=== PATIENT | female | born 2005 | race Caucasian/White ===

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

== ENCOUNTER 2024-02-19 17:55 | Emergency (ER) | payer OTHER, MEDICAID, SELFPAY ==
[2024-02-19 18:03] VITALS: BP 120/63; PULSE 88; RESP 16; TEMP 37.2; O2SAT 96
--- NOTE | 2024-02-19 21:03 | PC.NURSE ---
tried calling patient from waiting room with no answer
--- NOTE | 2024-02-20 02:50 | ED.SKABFB ---
HPI - Skin/Abscess/Foreign Bdy General Chief complaint: Skin/Abscess/Foreign Body Stated complaint: Cyst in L Armpit Time Seen by Provider: 02/19/24 18:17 Source: patient and family Mode of arrival: Ambulatory History of Present Illness HPI narrative: Patient left without seeing provider Related Data Previous Rx's Medication Instructions Recorded amoxicillin 250 mg chewable tablet 500 mg (2 x 250 mg) PO TID 5 days 06/19/16 #0 tabs nystatin 100,000 unit/gram topical 0 topher topical BID ##15 06/19/16 cream doxycycline hyclate 100 mg tablet 100 mg PO BID #20 tabs 09/13/22 hydrocodone 5 mg-acetaminophen 325 1 tab PO Q4-6H PRN pain #10 tabs 09/13/22 mg tablet Allergies Allergy/AdvReac Type Severity Reaction Status Date / Time gluten Allergy Verified 02/19/24 18:03 Patient History Medical History Down syndrome Social History Smoking Status: Never smoker Smoking Status: Never smoker Substance Use Type: does not use Exam Initial Vital Signs Initial Vital Signs: Vital Signs Temperature 99 F 02/19/24 18:03 Pulse Rate 88 02/19/24 18:03 Respiratory Rate 16 02/19/24 18:03 Blood Pressure 120/63 02/19/24 18:03 Pulse Oximetry 96 02/19/24 18:03 Oxygen Delivery Method Room Air 02/19/24 18:03 Discharge Plan Departure Patient Disposition: Left Without Being Seen Clinical Impression: Patient left without being seen Prescriptions: No Action nystatin 30 GM cream 0 topher Topical BID Qty: 15 0RF amoxicillin 250 MG tablet,chewable 500 mg PO TID 5 Days Qty: 0 0RF hydrocodone-acetaminophen 5-325 mg tablet 1 tab PO Q4-6H PRN (Reason: pain) Qty: 10 0RF doxycycline hyclate 100 mg tablet 100 mg PO BID Qty: 20 0RF
== END 2024-02-19 22:11 | disposition left against medical advice (07) ==
PROVIDERS: Emergency Provider Emergency Medicine; PCP Family Medicine
CPT/HCPCS: 99281